=== PATIENT | female | born 1995 | race Caucasian/White ===

== ENCOUNTER 2018-05-05 07:54 | Emergency (ER) | payer OTHER, MEDICAID ==
[~2018-05-05] VITALS: Ht 162.6 cm; Wt 61.2 kg
[~2018-05-05 07:54] MED LIST: NOHOMEMEDICATIONS; NORCO 5-325 TA1 EACH PO
[2018-05-05 08:01] VITALS: BP 129/62
[2018-05-05 08:17] LABS: URINE BILIRUBIN NEGATIVE (Negative); URINE BLOOD TRACE (Negative); URINE CLARITY CLEAR; URINE COLOR YELLOW; URINE GLUCOSE-RANDOM NEGATIVE (Negative); URINE KETONES NEGATIVE (Negative); URINE LEUKOCYTES-REFLEX 1+ (Negative); URINE NITRITE-REFLEX NEGATIVE (Negative); URINE PROTEIN NEGATIVE (Negative); URINE SPECIFIC GRAVITY 1.015 (1.005-1.030); URINE UROBILINOGEN 0.2 E.U./dl (0.2-1.0)
[2018-05-05 08:24] LABS: BACTERIA-REFLEX 1-9 Few /HPF (None Seen); CASTS None Seen /LPF (None Seen); CRYSTALS None Seen /LPF (None Seen); MUCUS None Seen strn/LPF (None Seen); SQUAMOUS 4-10 Moderate /LPF (0-3); URINE RBC 0-2 Rare /HPF (0-2); URINE WBC-REFLEX 0-5 Rare /HPF (0-5)
[2018-05-05] MEDS ORDERED: CIPROFLOXACIN500 M1 PO (08:24)
== END 2018-05-05 08:32 | disposition home or self-care (01) ==
LOC: M.ERS 07:54
PROVIDERS: Family Medicine
DX: N39.0 Urinary tract infection, site not specified (principal); Z98.890 Other specified postprocedural states

== ENCOUNTER 2018-08-18 13:29 | Emergency (ER) | payer OTHER, MEDICAID ==
[~2018-08-18] VITALS: Ht 162.6 cm; Wt 72.6 kg
[~2018-08-18 13:29] MED LIST changes: +CIPROFLOXACIN500 M1 PO
[2018-08-18 13:50] LABS: URINE BILIRUBIN NEGATIVE (Negative); URINE BLOOD NEGATIVE (Negative); URINE CLARITY CLEAR; URINE COLOR YELLOW; URINE GLUCOSE-RANDOM NEGATIVE (Negative); URINE KETONES NEGATIVE (Negative); URINE LEUKOCYTES-REFLEX NEGATIVE (Negative); URINE NITRITE-REFLEX NEGATIVE (Negative); URINE PROTEIN NEGATIVE (Negative); URINE SPECIFIC GRAVITY >= 1.030 (1.005-1.030); URINE UROBILINOGEN 0.2 E.U./dl (0.2-1.0)
[2018-08-18 14:18] LABS: ABSOLUTE BASOPHILS 0.1 thou/uL (0.0-0.2); ABSOLUTE EOSINOPHILS 0.1 thou/uL (0.0-0.7); ABSOLUTE LYMPHOCYTES 1.6 thou/uL (0.8-5.3); ABSOLUTE MONOCYTES 0.5 thou/uL (0.0-1.2); ABSOLUTE NEUTROPHILS 5.5 thou/uL (1.6-8.1); EOSINOPHILS 1.7 %; HEMATOCRIT 40.3 % (37.0-47.0); LYMPHOCYTES 19.9 %; MCH 30.5 pg (26.0-34.0); MCHC 34.8 g/dL (28.0-37.0); MCV 87.7 fL (80.0-100.0); MONOCYTES 6.4 %; MPV 8.4 fl. (7.2-11.1); NUCLEATED RBCS 0 /100WBC; PLATELET COUNT* 337 thou/uL (150-400); RBC 4.59 mil/uL (4.20-5.00); RDW-CV 12.6 % (10.5-14.5); WBC 7.8 thou/uL (4.0-11.0)
[2018-08-18 14:34] LABS: CALCIUM 8.8 mg/dL (8.5-10.1); CREATININE 0.7 mg/dL (0.6-1.3); POTASSIUM 3.9 mmol/L (3.5-5.1)
[2018-08-18 15:46] VITALS: BP 115/77
== END 2018-08-18 15:46 | disposition home or self-care (01) ==
LOC: M.ERS 13:29
PROVIDERS: Nurse Practitioner Family
DX: O26.891 Other specified pregnancy related conditions, first trimester (principal); Z3A.00 Weeks of gestation of pregnancy not specified; R10.31 Right lower quadrant pain; Z98.890 Other specified postprocedural states

== ENCOUNTER 2018-09-29 13:38 | Emergency (ER) | payer OTHER, MEDICAID ==
[~2018-09-29] VITALS: Ht 162.6 cm; Wt 74.8 kg
[2018-09-29 13:47] VITALS: BP 119/74
== END 2018-09-29 14:25 | disposition home or self-care (01) ==
LOC: M.ERS 13:38
DX: O9A.211 Injury, poisoning and certain other consequences of external causes complicating pregnancy, first trimester (principal); S83.8X1A Sprain of other specified parts of right knee, initial encounter; S30.1XXA Contusion of abdominal wall, initial encounter; Z98.890 Other specified postprocedural states; Z3A.09 9 weeks gestation of pregnancy; W00.0XXA Fall on same level due to ice and snow, initial encounter; Y92.89 Other specified places as the place of occurrence of the external cause; Y93.89 Activity, other specified; Y99.8 Other external cause status

== ENCOUNTER 2019-05-22 22:56 | Emergency (ER) | payer OTHER, MEDICAID ==
[~2019-05-22] VITALS: Ht 162.6 cm; Wt 63.5 kg
[2019-05-22] MEDS ORDERED: AMOXIL 875 MG875 M2 PO (23:05)
[2019-05-22] MEDS ORDERED: CLEOCIN HCL150 MG PO (23:13)
[2019-05-22] MEDS ORDERED: TRAMADOL 50 MG50 MG PO (23:13)
[2019-05-22 23:34] VITALS: BP 132/78
== END 2019-05-22 23:34 | disposition home or self-care (01) ==
LOC: M.ERS 22:56
DX: K08.89 Other specified disorders of teeth and supporting structures (principal); R22.0 Localized swelling, mass and lump, head; Z98.890 Other specified postprocedural states; Z87.440 Personal history of urinary (tract) infections

== ENCOUNTER 2019-08-08 09:00 | Emergency (ER) | payer OTHER, MEDICAID ==
[~2019-08-08] VITALS: Ht 162.6 cm; Wt 72.6 kg
[~2019-08-08 09:00] MED LIST changes: +AMOXIL 875 MG875 M2 PO; +CLEOCIN HCL150 MG PO; +TRAMADOL 50 MG50 MG PO
[2019-08-08] MEDS ORDERED: NORCO 5-325 TA1 EAC1 PO (09:31)
[2019-08-08] MEDS ORDERED: AUGMENTIN 875-1 EACH PO (09:31)
[2019-08-08 09:35] VITALS: BP 109/68
== END 2019-08-08 09:37 | disposition home or self-care (01) ==
LOC: M.ERS 09:00
DX: H60.91 Unspecified otitis externa, right ear (principal); Z98.890 Other specified postprocedural states; Z87.440 Personal history of urinary (tract) infections

== ENCOUNTER 2019-08-10 17:28 | Emergency (ER) | payer OTHER, MEDICAID ==
[~2019-08-10] VITALS: Ht 162.6 cm; Wt 68.0 kg
[~2019-08-10 17:28] MED LIST changes: +AUGMENTIN 875-1 EACH PO; +NORCO 5-325 TA1 EAC1 PO
[2019-08-10 17:33] VITALS: BP 128/86
== END 2019-08-10 18:03 | disposition home or self-care (01) ==
LOC: M.ERS 17:28
DX: H60.91 Unspecified otitis externa, right ear (principal); Z98.890 Other specified postprocedural states

== ENCOUNTER 2019-08-12 10:41 | Emergency (ER) | payer OTHER, MEDICAID ==
[~2019-08-12] VITALS: Ht 162.6 cm; Wt 68.0 kg
[2019-08-12 10:47] VITALS: BP 112/70
[2019-08-12] MEDS ORDERED: CIPRO HC OTIC S10 ML OTIC (11:08)
== END 2019-08-12 11:19 | disposition home or self-care (01) ==
LOC: M.ERS 10:41
DX: H60.93 Unspecified otitis externa, bilateral (principal); L40.9 Psoriasis, unspecified; Z87.440 Personal history of urinary (tract) infections; Z98.890 Other specified postprocedural states

== ENCOUNTER 2020-07-03 09:43 | Emergency (ER) | payer OTHER, MEDICAID ==
[~2020-07-03] VITALS: Ht 162.6 cm; Wt 72.6 kg
[~2020-07-03 09:43] MED LIST changes: +CIPRO HC OTIC S10 ML OTIC
[2020-07-03] MEDS ORDERED: NORCO 5-325 TA1 EAC2 PO (10:33)
[2020-07-03] MEDS ORDERED: FLEXERIL PO (10:33)
[2020-07-03 10:42] VITALS: BP 117/73
== END 2020-07-03 10:43 | disposition home or self-care (01) ==
LOC: M.ERS 09:43
DX: S39.012A Strain of muscle, fascia and tendon of lower back, initial encounter (principal); L40.9 Psoriasis, unspecified; Z98.890 Other specified postprocedural states; Z87.440 Personal history of urinary (tract) infections; X50.9XXA Other and unspecified overexertion or strenuous movements or postures, initial encounter; Y93.89 Activity, other specified; Y92.89 Other specified places as the place of occurrence of the external cause; Y99.8 Other external cause status